=== PATIENT | male | born 1955 | race Caucasian/White ===

== ENCOUNTER 2019-06-01 10:24 | Observation (INO) | payer MEDICARE, MEDICAID, SELFPAY ==
[2019-06-01] VITALS (10 sets, daily range): BP systolic 97–152; BP diastolic 58–84; PULSE 93–106; RESP 12–22; TEMP 36.7–37.4; O2SAT 96–99; BMI 31.6
--- NOTE | ~2019-06-01 | XR_ITS ---
EXAMINATION: XR chest 1V DATE: 06/01/2019 11:50 INDICATION: Shortness of breath. TECHNIQUE: A single frontal view of the chest was obtained. COMPARISON: Chest single view 12/18/2017, CT abdomen and pelvis 09/28/2017 FINDINGS: There is no pneumonia, pleural effusion, or pneumothorax. The heart size is normal. There a re prominent paracardial fat pads. There are changes of mitral valve replacement. IMPRESSION: 1. No acute cardiopulmonary disease. Reviewed, dictated and finalized at location A. [employer]AM MEMBER
--- NOTE | ~2019-06-01 | CT_ITS ---
EXAMINATION: CT brain wo con DATE: 06/01/2019 16:00 INDICATION: Altered mental status. TECHNIQUE: Computed tomography (CT) of the head was performed without intravenous contrast. The dose- length product was 605.33 mGy-cm. The mA was adjusted according to patient size. Iterative reconstruc tion technique was employed. COMPARISON: CT dated 08/17/2017 FINDINGS: There are chronic infarctions of the right temporal lobe, right frontal lobe, right parieta l lobe and right occipital lobe. Chronic right cerebellar infarctions. Generalized atrophy. There is a chronic right thalamic infarction. There are scattered moderate periventricular and subcortical whi te matter changes, most likely related to small vessel ischemic disease (microangiopathy). No ventric ulomegaly or midline shift. There is intracranial atherosclerosis. There is a chronic left parietal i nfarction. There is mucosal thickening of the ethmoid, sphenoid and right maxillary sinuses. Mastoids are pneumatized. IMPRESSION: 1. No acute intracranial abnormality. 2: Chronic right frontal, bilateral parietal, right temporal, right occipital, right cerebellar and r ight thalamic infarctions. 3: Chronic age-related findings. 4: Chronic sinusitis. Reviewed, dictated and finalized at location A. ET OPERATOR IMPRESSION: 1. No acute intracranial abnormality. 2: Chronic right frontal, bilateral parietal, right temporal, right occipital, right cerebellar and right thalamic infarctions. 3: Chronic age-related findings. 4: Chronic sinusitis.
--- NOTE | 2019-06-01 10:28 | ECG_ITS ---
Measurements Intervals [place] Rate: 99 P: 58 UT: 189 QRS: 10 QRSD: 94 T: 66 QT: 351 QTc: 451 Interpretive Statements SINUS RHYTHM BORDERLINE ST-T WAVE ABNORMALITY- LATERAL LEADS BASELINE ARTIFACT- I, II, III, AVR, AVL, AVF, V3 BORDERLINE ECG Electronically Signed On 06-01-2019 11:58:24 [employer] SERVIC[employer] by Demetris Walsh D.O.
--- NOTE | 2019-06-01 10:51 | ED.GENADULT ---
HPI - General Adult General Chief complaint: Altered Mental Status <Alyse Hightower PA-C - Last Filed: 06/01/19 16:56> Stated complaint: weakness/ams <Alyse Hightower PA-C - Last Filed: 06/01/19 16:56> Time Seen by Provider: 06/01/19 10:37 <Alyse Hightower PA-C - Last Filed: 06/01/19 16:56> Source: patient and family <Alyse Hightower PA-C - Last Filed: 06/01/19 16:56> Mode of arrival: EMS <SUJATA Gregory Last Filed: 06/01/19 16:56> Limitations: no limitations <Alyse Hightower PA-C - Last Filed: 06/01/19 16:56> History of Present Illness HPI narrative: Patient was brought in from his residential facility by EMS for further evaluation of worsening weakness and shortness of breath. Patient states that he in the past has been able to transfer himself from the bed to the wheelchair without difficulty. Now the staff reports that he has no strength to assist. Patient states that once he is in his wheelchair he is still able to move himself about the facility with his legs. He is only short of breath with exertion and had denies any chest pain. Patient has chronic leukemia. Patient has lived in this residential facility for 1-1/2 years. <Alyse Hightower PA-C - Last Filed: 06/01/19 16:56> Onset (ago): week(s) <Alyse Hightower PA-C - Last Filed: 06/01/19 16:56> Associated symptoms: shortness of breath <SUJATA Gregory Last Filed: 06/01/19 16:56> Treatments prior to arrival: none <SUJATA Gregory Last Filed: 06/01/19 16:56> Related Data Home medications: Home Medications Medication Instructions Recorded Confirmed acetaminophen [Pain Relief Extra 06/01/19 Strength] aspirin 06/01/19 citalopram mg 06/01/19 gabapentin 02/01/20 hydroxyurea 06/01/19 magnesium 06/01/19 nitroglycerin mg 06/01/19 nystatin TOPICAL 06/01/19 polyethylene glycol 3350 06/01/19 sennosides-docusate sodium [Senna PO 06/01/19 Plus] tramadol mg 06/01/19 <SUJATA Gregory Last Filed: 06/01/19 16:56> Allergies/adverse reactions: Allergies Allergy/AdvReac Type Severity Reaction Status Date / Time diazepam Allergy Intermediate Unknown Verified 06/01/19 10:28 midazolam Allergy Intermediate Unknown Verified 06/01/19 10:28 warfarin Allergy Intermediate Unknown Verified 06/01/19 10:28 clopidogrel Allergy Unknown Unknown Verified 06/01/19 10:28 <SUJATA Gregory Last Filed: 06/01/19 16:56> Review of Systems Constitutional: Constitutional: Reports no additional constitutional complaints <SUJATA Gregory Last Filed: 06/01/19 16:56> Eyes: Eyes: Reports no additional eye complaints <SUJATA Gregory Last Filed: 06/01/19 16:56> ENT: Reports system reviewed and no additional complaints, except as documented <SUJATA Gregory Last Filed: 06/01/19 16:56> Cardiovascular: Cardiovascular: Reports no additional cardiovascular complaints <SUJATA Gregory Last Filed: 06/01/19 16:56> Respiratory: Respiratory: Reports no additional respiratory complaints <SUJATA Gregory Last Filed: 06/01/19 16:56> Gastrointestinal: Gastrointestinal: Reports no additional gastrointestinal complaints <SUJATA Gregory Last Filed: 06/01/19 16:56> Musculoskeletal: Comments: Unable to straighten both legs, normal strength <SUJATA Gregory Last Filed: 06/01/19 16:56> Integumentary/Breasts: Skin/Breast: Reports system reviewed and no additional complaints, except as docu <SUJATA Gregory Last Filed: 06/01/19 16:56> Neurologic: Reports system reviewed and no additional complaints, except as documented <Alyse Hightower PA-C - Last Filed: 06/01/19 16:56> Psychiatric: Psychiatric: Reports no additional psychiatric complaints <Alyse Hightower PA-C - Last Filed: 06/01/19 16:56> [facility] Past Medical History Medical History: Medical History (Reviewed 06/01/19 @ 11:59 by Alyse Gomez
[2019-06-01 11:22] LABS: Basophils Percent Auto 0.7 % (0.2-1.2); Eosinophils Percent Auto 1.3 % (0-4.4); Hematocrit 29.1 % (42.0-52.0); Hemoglobin 10.2 g/dL (14.0-18.0); Immature Granulocyte Absolute 0.03 K/mm3 (0.00-0.031); Lymphocytes Absolute Auto 1.04 K/mm3 (0.9-3.2); Mean Corpuscular HGB Conc 35.1 g/dl (32-36); Mean Corpuscular Volume 139.9 fl (80-100); Mean Platelet Volume 9.5 fl (7.4-10.4); Monocytes Absolute Auto 0.3 K/mm3 (0.1-0.6); Monocytes Percent Auto 10.1 % (2.6-8.5); Neutrophils Absolute Auto 1.6 K/mm3 (1.3-6.7); Neutrophils Percent Auto 52.9 % (45.5-73.1); Nucleated Red Blood Cells Absolute Auto 0.1 K/mm3 (0.0-0.012); Nucleated Red Blood Cells Perc 1.6 % (0.0-0.2); Platelet Count Result 287 k/mm3 (150-375); Red Blood Count 2.08 M/mm3 (4.6-6.20); Red Cell Distribution Width 12.3 % (11.5-14.5); White Blood Count 3.1 K/mm3 (4.5-10.0)
[2019-06-01 11:35] LABS: Alanine Aminotransferase 15 U/L (4-50); Albumin Level 4.2 g/dL (3.5-5.1); Alkaline Phosphatase 47 U/L (38-126); Aspartate Amino Transferase 25 U/L (17-59); Bilirubin,Total 0.5 mg/dL (0.2-1.3); Blood Urea Nitrogen 15 mg/dL (9-20); Calcium 8.6 mg/dL (8.4-10.2); Carbon Dioxide 27 mmol/L (22-30); Chloride 95 mmol/L (98-107); Estimated CRCL calculation 93 ml/min; Estimated Glomerular Filt Rate > 60; Glucose 135 mg/dL (75-110); Potassium 4.1 mmol/L (3.4-5.0); Sodium 133 mmol/L (137-145)
[2019-06-01 12:25] LABS: Add Urine Microscopic? NO; Appearance Urine Clear (Clear); Bilirubin Urine Negative (Negative); Blood Urine Negative (Negative); Color Urine Yellow (Yellow); Glucose Urine UA Negative (Negative); Ketones Urine Negative (Negative); Leukocyte Esterase Ur Negative LEU/UL (Negative); Mucus Urine Rare /lpf; Nitrate Urine Negative (Negative); Protein Urine Negative (Negative); RBC Urine 0-2 /hpf (0-2); Specific Grav Ur 1.015 (1.001-1.035); Squamous Epithelial Cell Urine Rare /hpf (Few); Urobilinogen Urine Negative mg/dL (<2.0); WBC Urine 0-3 /hpf
--- NOTE | 2019-06-01 18:07 | PC.NURSE ---
This patient, Masoud Luque, was admitted to Medical Room 257-01. Patient/family oriented to hospital policies and general routines including ID bracelet, bed and alarms, visiting hours, pain management, procedures, bathroom and other care routines, personal items, smoking policy, room service/diet, and visiting hours. Valuables list has been completed. Information on how to activate the Rapid Response Team has been discussed. Patient/Family are encouraged to report perceived risks to care and to ask questions if they do not understand what they are told or what they should do.
--- NOTE | 2019-06-01 23:12 | PM.IMHP ---
H&P: HPI History of Present Illness Chief complaint: altered mental status Narrative: This is a 63-year-old male with known medical history of previous strokes, leukemia, and heart disease who was brought to the hospital for evaluation of generalized weakness and apparently shortness of breath from the nursing home facility. Nursing staff had reported that the patient had suffered 3 falls over the past 3 days. It is unknown if he suffered any type of head trauma. Apparently the patient was also picking things out of the air that did not exist according to the [facility] staff and was found to be incontinent of stool and urine which is uncharacteristic of him. The patient was brought to the emergency room and routine evaluation was performed. Routine labs were obtained and the patient had a head CT done that was unremarkable for any acute intracranial pathology. Nursing staff alerted me that the patient was going to be discharged back to the nursing home facility but the the decision was made to keep him overnight for observation as the family did not want him to go back. On my encounter with the patient tonight he has no complaints and appears upset that he was kept in the hospital. The patient tells me that he is wheelchair-bound and that he suffers from chronic lower extremity weakness from previous strokes. He appears to be alert and oriented. On specific questioning he denies any fevers, chills, shortness of breath, wheezing, cough, chest pain, abdominal pain, blurry vision, nausea, vomiting, headaches, dysuria, hematuria, diarrhea, rectal bleeding, numbness, tingling, or new focal weakness. The patient has no complaints and is asking me when he can go home. Review of Systems Review of Systems: All systems reviewed & are unremarkable except as noted in HPI and below PMFSH Past Medical History Medical History (Updated 06/02/19 @ 04:01 by New Garcia MD) CVA (cerebral vascular accident) Leukemia, chronic Myocardial infarct Surgical History Surgical History Stented coronary artery Family History Family History Sibling Diabetes mellitus Acute myocardial infarction Congestive heart failure Hypertension Cerebrovascular accident Prostate carcinoma Sibling Diabetes mellitus Acute myocardial infarction Chronic obstructive pulmonary disease Hypertension Cerebrovascular accident Prostate carcinoma Sibling History of blood clots Diabetes mellitus Hypertension Father Diabetes mellitus Cerebrovascular accident Sibling Diabetes mellitus Social History Social History Smoking packs per day: 2 Smoking cigarettes per day: 40.0 Years smoked: 50 Smoking pack-years: 100.00 Smoking status: Former smoker Tobacco type: cigarettes Alcohol intake: former Substance use: former Substance use type: does not use Living arrangements: [facility]itentiary Spiritual care concerns: No Agree to blood products: Yes Meds Home Medications and Allergies Home Medications Medication Instructions Recorded Confirmed Type acetaminophen [Acetaminophen Extra 500 mg PO TID 06/01/19 06/01/19 History Strength] aspirin 81 mg PO DAILY 06/01/19 06/01/19 History citalopram 20 mg BID 06/01/19 06/01/19 History gabapentin 100 mg TID 06/01/19 06/01/19 History hydroxyurea 500 mg PO QID 06/01/19 06/01/19 History ipratropium-albuterol [Combivent 1 puff INHALATION Q4H PRN 06/01/19 06/01/19 History Respimat] magnesium 400 mg PO DAILY 06/01/19 06/01/19 History nitroglycerin 0.4 mg SUBLINGUAL PRN PRN 06/01/19 06/01/19 History polyethylene glycol 3350 17 g DAILY 06/01/19 06/01/19 History sennosides-docusate sodium [Senna 8.6 tablet PO EVERY OTHER DAY 06/01/19 06/01/19 History Plus] tramadol 500 mg QID 06/01/19 06/01/19 History Allergies
[2019-06-02 03:14] VITALS: BP 135/54; PULSE 97; RESP 16; TEMP 35.8; O2SAT 94
[2019-06-02 04:00] VITALS: PULSE 98
[2019-06-02 05:18] LABS: Basophils Percent Auto 0.8 % (0.2-1.2); Eosinophils Percent Auto 0.6 % (0-4.4); Hematocrit 30.6 % (42.0-52.0); Hemoglobin 10.6 g/dL (14.0-18.0); Immature Granulocyte Absolute 0.03 K/mm3 (0.00-0.031); Immature Granulocyte Percent A 0.8 % (0-0.5); Lymphocytes Absolute Auto 1.39 K/mm3 (0.9-3.2); Lymphocytes Percent Auto 38.4 % (18.3-44.2); Mean Corpuscular HGB Conc 34.6 g/dl (32-36); Mean Corpuscular Hemoglobin 48.8 pg (26-34); Monocytes Absolute Auto 0.7 K/mm3 (0.1-0.6); Monocytes Percent Auto 20.2 % (2.6-8.5); Neutrophils Absolute Auto 1.4 K/mm3 (1.3-6.7); Neutrophils Percent Auto 39.2 % (45.5-73.1); Nucleated Red Blood Cells Absolute Auto 0.1 K/mm3 (0.0-0.012); Nucleated Red Blood Cells Perc 1.7 % (0.0-0.2); Platelet Count Result 307 k/mm3 (150-375); Red Blood Count 2.17 M/mm3 (4.6-6.20); Red Cell Distribution Width 12.2 % (11.5-14.5); White Blood Count 3.6 K/mm3 (4.5-10.0)
[2019-06-02 05:33] LABS: Blood Urea Nitrogen 14 mg/dL (9-20); Calcium 8.5 mg/dL (8.4-10.2); Carbon Dioxide 27 mmol/L (22-30); Chloride 94 mmol/L (98-107); Cholesterol 144 mg/dL (0-200); Estimated CRCL calculation 102 ml/min; Estimated Glomerular Filt Rate > 60; Glucose 141 mg/dL (75-110); HDL Direct 40 mg/dL; Potassium 4.2 mmol/L (3.4-5.0); Sodium 133 mmol/L (137-145); Triglycerides 65 mg/dL (<150)
[2019-06-02 05:43] LABS: LDL Cholesterol Direct 89 mg/dL
[2019-06-02 06:00] VITALS: BP 135/54; PULSE 91; RESP 20; TEMP 35.8; O2SAT 98
[2019-06-02 06:00] LABS: Free T4 Free Thyroxine 1.38 ng/mL (0.78-2.19)
--- NOTE | 2019-06-02 07:54 | PC.NURSE ---
Called ROSALBA Strong patient refusing to wear hall monitor. Patient very agitated and threatening to throw monitor. Requesting to DC telemetry monitoring. Per ROSALBA Strong ok to discontinue monitoring.
[2019-06-02] MEDS: GABAPENTIN 100 MG CAPSULE BY MOUTH ×2 (08:05→12:19)
[2019-06-02] MEDS: ASPIRIN 81 MG CHEWABLE TABLET PO (08:05)
[2019-06-02] MEDS: MAGNESIUM OXIDE 400 MG TABLET PO (08:05)
[2019-06-02] MEDS: SENNA/DOCUSATE SODIUM TABLET 1 TAB PO (08:05)
[2019-06-02] MEDS: CITALOPRAM HYDROBROMIDE 20 MG TABLET BY MOUTH (08:05)
[2019-06-02] MEDS: ACETAMINOPHEN 500 MG TABLET PO ×2 (08:05→12:19)
[2019-06-02] MEDS: HYDROXYUREA (*CHEMO) 500 MG CAPSULE PO ×2 (08:05→12:19)
[2019-06-02] MEDS: polyethylene glycoL 3350 17 GM POWD.PACK BY MOUTH (08:07)
[2019-06-02 09:46] LABS: Folic Acid 11.6 ng/mL (2.76->20)
[2019-06-02 10:00] VITALS: BP 123/65; PULSE 86; RESP 18; TEMP 36.5; O2SAT 98
--- NOTE | 2019-06-02 13:16 | PM.DS ---
DS: Diagnosis Admitting Diagnosis Admitting Diagnosis: Encephalopathy, unspecified Discharge Diagnosis (1) Acute encephalopathy: Code(s): G93.40 - Encephalopathy, unspecified Status: Resolved Assessment and Plan: Patient was admitted for observation. Dr. Aguirre was consulted and appreciate input. Patient refused telemetry and threatened the nursing staff if it was not taken off immediately; this show sinus rhythm with occasional PVCs and trigeminy occasionally. Patient is back to he baseline, per patient. Spoke with Aleshia with patient's permission and she is concerned of a recent stroke 3 days ago [facility] when he had left arm weakness and lost bowel/bladder function. Discussed this with Dr. Aguirre whom reviewed labs/imaging. Labs have been grossly unremarkable. CT scan had shown chronic infarcts; no acute changes found. Patient is okay for discharge from Neurology standpoint He will return to residential/NH after discharge PT/OT Dr. Aguirre would like to have him follow up with him in 4 weeks as an outpatient for possible further imaging/work up Dr. Aguirre recommends 10 mg atorvastatin at night and continue 81 mg Aspirin (2) Generalized weakness: Code(s): R53.1 - Weakness Status: Acute Assessment and Plan: May be secondary to deconditioning as the patient is wheelchair-bound. Patient is already in a care home facility will likely need to be discharged back to care home facility once he is medically stable. PT/OT at NH once discharged from here (3) Leukemia, chronic: Qualifiers: Leukemia Active/Remission status: without remission Qualified Code(s): C95.10 - Chronic leukemia of unspecified cell type not having achieved remission Code(s): C95.10 - Chronic leukemia of unspecified cell type not having achieved remission Status: Chronic Assessment and Plan: Stable Follow up with Oncologist (4) Hypertension: Qualifiers: Hypertension type: unspecified Qualified Code(s): I10 - Essential (primary) hypertension Code(s): I10 - Essential (primary) hypertension Status: Chronic Assessment and Plan: Stable. monitor blood pressure. Continue antihypertensive medications at discharge DS: Summary Hospital Course Reason for hospitalization: Acute encephalopathy Hospital Course: Patient is a 63 yo M with known medical history of previous strokes, leukemia, and heart disease who was brought to the hospital on 06/01 for evaluation of generalized weakness and apparently shortness of breath from the care home facility. Nursing Staff reported patient had suffered 3 falls in the previous 3 days from presentation. According to nursing staff at the facility he was picking things out of the air that were not there and was incontinent of stool and urine which was uncharacteristic of him. In the ER, Head CT was unremarkable for acute stroke. He was going to be discharged back to the SNF, however, family did not want him to return to the facility. Patient was very upset that he was kept in the hospital. Please see H&P for further details. Presenting VS: BP 113/79, HR 102, RR 16, temp 99.4, sat 98% RA Presenting Pertinent labs: WBC 3.1, H&H 10.2/29.1, MCV 139.9, Na 133, Cl 95. CBC, CMP, lipid panel, vit B12/folate, T4, UA otherwise unremarkable Micro: MRSA screen negative Imagin/1 CXR IMPRESSION: 1. No acute cardiopulmonary disease. / Head CT IMPRESSION: 1. No acute intracranial abnormality. 2: Chronic right frontal, bilateral parietal, right temporal, right occipital, right cerebellar and right thalamic infarctions. 3: Chronic age-related findings. 4: Chronic sinusitis. ECG: Interpretive Statements SINUS RHYTHM BORDERLINE ST-T WAVE ABNORMALITY- LATERAL LEADS BASELINE ARTIFACT- I, II, III, AVR, AVL, AVF, V3 B
[2019-06-02 13:55] VITALS: O2SAT 95
[2019-06-02 14:00] VITALS: BP 121/68; PULSE 97; RESP 20; TEMP 36.2; O2SAT 98
[2019-06-02 14:19] VITALS: BMI 11.0
[2019-06-02 14:20] VITALS: BMI 11.0
--- NOTE | 2019-06-02 19:20 | CONS_ITS ---
DATE OF CONSULTATION: 06/01/2019 HISTORY: This 63-year-old right-handed male has been admitted to [facility] the [facility]. The patient carries a diagnoses of: 1. Previous stroke. 2. Leukemia. 3. Heart disease. He was brought to the hospital for the complaints of generalized weakness and difficulties in breathing and also with information that the patient has had 3 falls over the last 3 days. Additionally, he was picking things out of the ear that did not exist according to prison staff and was found to be incontinent of stool and urine, which is uncharacteristic of him. The patient had a CT scan done, which was unremarkable. He was kept in the hospital overnight for observation, as the family did not want him to go back and the patient was upset that they kept him in the hospital. He is wheelchair bound and suffers from chronic lower extremity weakness from previous stroke. In the past, he has ongoing history of: 1. CVA. 2. Chronic leukemia. 3. Myocardial infarct. 4. Coronary artery stenting. He is a smoker 15 years former. MEDICATIONS: At the time of admission, he was takin. Aspirin 81 mg daily. 2. Citalopram 20 mg daily. 3. Gabapentin 100 t.i.d. 4. Hydroxyurea 500 q.i.d. 5. Magnesium 400 daily. 6. Nitroglycerin 0.4 mg sublingual daily. 7. MiraLAX 17 g daily. 8. Tramadol 50 mg q.i.d. p.r.n. ALLERGIES: HE IS ALLERGIC TO DIAZEPAM, MIDAZOLAM, WARFARIN, AND CLOPIDOGREL. ? Evaluation up until now included the CT scan of the head, which is with chronic right frontal, bilateral parietal, right temporal, right occipital, right cerebellar, right thalamic infarction with chronic sinusitis. Chest x-ray is negative. Routine blood studies are only suggestive of mild leukopenia, anemia. PHYSICAL EXAMINATION: GENERAL: He is awake, alert, cooperative, in no obvious acute distress. HEENT: Head normocephalic with no cranial bruit. Ear, nose, throat exam normal. NECK: Supple with no cervical bruit. No thyromegaly. No lymphadenopathy. HEART: Regular. LUNGS: Clear. ABDOMEN: Soft. NEUROLOGICAL: He is awake, alert. He is upset that he is being admitted to the hospital. Pupils round, regular. [place] of vision full. Extraocular movements full. Face symmetrical. Tongue midline. Motor examination revealed him to have no drift of 1 side or other side. Motor exam of the lower extremity is limited, because he is unable to extend the knee joint, in addition to the right Babinski. Considering both lower extremity spasticity, I was worried about this cervical pathology. I will review that and further recommendations will be made accordingly. JAIMIE MERCHANT M.D. LACE STRIPPER LACE STRIPPER D I MT: Saravanan
== END 2019-06-02 15:56 ==
LOC: ANHED 16:55 → ANH2MED 17:00
PROVIDERS: Emergency Medicine; Family Medicine; Physician Assistant; Admitting Provider Family Medicine; Emergency Provider Emergency Medicine; Visit Provider Internal Medicine
DX: G93.40 Encephalopathy, unspecified (principal); R53.1 Weakness; C95.10 Chronic leukemia of unspecified cell type not having achieved remission; I10 Essential (primary) hypertension; I25.2 Old myocardial infarction; I69.398 Other sequelae of cerebral infarction; R29.898 Other symptoms and signs involving the musculoskeletal system; Z99.3 Dependence on wheelchair; Z95.5 Presence of coronary angioplasty implant and graft; R29.6 Repeated falls; Z79.82 Long term (current) use of aspirin; Z79.899 Other long term (current) drug therapy; Z87.891 Personal history of nicotine dependence; Z88.8 Allergy status to other drugs, medicaments and biological substances
CPT/HCPCS: 36415; 51701; 70450; 71045; 80048; 80053; 80061; 81003; 82607; 82746; 84439; 85025; 87081; 93005; 97162; 97166; 99285; A9270; G0378; G0379

== ENCOUNTER 2019-09-05 22:27 | Emergency (ER) | payer MEDICARE, MEDICAID, SELFPAY ==
[2019-09-05 22:26] VITALS: BP 117/65; PULSE 95; RESP 16; TEMP 36.3; O2SAT 99
[2019-09-06] MEDS: ONDANSETRON INJ 4 MG/2 ML VIAL IV PUSH (00:06)
[2019-09-06] MEDS: MORPHINE SULFATE 4 MG/ML INJ IV PUSH (00:06)
[2019-09-06] MEDS: CLINDAMYCIN 900 MG/NS 50 ML 900 MG/50 ML PIGGYBACK 50 MG IVPB (00:10)
--- NOTE | 2019-09-06 00:12 | ED.GENADULT ---
HPI - General Adult General Chief complaint: Allergic Reaction Stated complaint: swelling lips Source: patient and EMS Mode of arrival: EMS History of Present Illness HPI narrative: This patient is a 64 yo male who presents for severe lip pain. PAtient state he has had sores to both lips for 3 weeks. He reports his pain is so severe , EMS states patient asked to be sent to ER. According to records, patient was just started on Valtrex 1 gram TID 2 days ago. Patient states is able to tolerate oral. He denies sore throat , fever, weakness, nausea or vomiting. Onset (ago): week(s) (3) Related Data Home Medications Medication Instructions Recorded Confirmed Combivent Respimat 1 puff INHALATION Q4H PRN 06/01/19 06/01/19 Senna Plus 8.6 tablet PO EVERY OTHER DAY 06/01/19 06/01/19 acetaminophen [Acetaminophen Extra 500 mg PO TID 06/01/19 06/01/19 Strength] aspirin 81 mg PO DAILY 06/01/19 06/01/19 citalopram 20 mg BID 06/01/19 06/01/19 gabapentin 100 mg TID 06/01/19 06/01/19 hydroxyurea 500 mg PO QID 06/01/19 06/01/19 magnesium 400 mg PO DAILY 06/01/19 06/01/19 nitroglycerin 0.4 mg SUBLINGUAL PRN PRN 06/01/19 06/01/19 polyethylene glycol 3350 17 g DAILY 06/01/19 06/01/19 tramadol 500 mg QID 06/01/19 06/01/19 atorvastatin 09/05/19 valacyclovir 09/05/19 valacyclovir 1,000 mg TID 09/05/19 09/05/19 Allergies Allergy/AdvReac Type Severity Reaction Status Date / Time diazepam Allergy Intermediate Unknown Verified 06/01/19 10:28 midazolam Allergy Intermediate Unknown Verified 06/01/19 10:28 warfarin Allergy Intermediate Unknown Verified 06/01/19 10:28 clopidogrel Allergy Unknown Unknown Verified 06/01/19 10:28 Review of Systems Review of Systems: All systems reviewed & are unremarkable except as noted in HPI and below Constitutional: Constitutional: Denies chills, Denies fever(s) and Denies weakness ENT: Denies dry mouth, Reports mouth lesions (lips) and Denies sore throat Respiratory: Respiratory: Denies cough Gastrointestinal: Gastrointestinal: Denies nausea and Denies vomiting [facility] Past Medical History Medical History CVA (cerebral vascular accident) Leukemia, chronic Myocardial infarct Surgical History Surgical History Stented coronary artery Social History Social History Smoking packs per day: 2 Smoking cigarettes per day: 40.0 Years smoked: 50 Smoking pack-years: 100.00 Smoking status: Former smoker Tobacco type: cigarettes Alcohol intake: former Substance use: former Substance use type: does not use Spiritual care concerns: No Agree to blood products: Yes Exam Const: General: alert Orientation/consciousness: patient oriented x3 HENMT: Face and sinus: face symmetric Mouth: Yes moist mucous membranes, Yes lip abnormal (upper and lower lips with multiple ulcerations with curran crusting) and Yes other (no thrush, no lesion inside oropharynx) Throat: posterior oropharynx normal, tonsils normal and uvula midline Eyes: Pupils: Equal, round and reactive pupils present EOM: EOMs intact bilaterally Resp: Effort & Inspection: normal respiratory effort Cardio: Rate: regular rate Rhythm: regular rhythm Heart sounds: no murmurs Skin: General skin exam: pallor Neuro: General: patient oriented x3 Course Reevaluation(s) Reevaluation #1: Patient is resting comfortably. He states he feels better. Patient appears to stomatitis due to herpes. Will add on antibiotics ointment Date: 09/06/19 Time: 01:00 Vital Signs Vital signs: Vital Signs Temperature 97.3 F L 09/05/19 22:26 Pulse Rate 95 09/05/19 22:26 Respiratory Rate 16 09/05/19 22:26 Blood Pressure 117/65 09/05/19 22:26 Pulse Oximetry 99 09/05/19 22:26 Temperature 97.3 F L 09/06/19 00:46 Pulse Rate 90 09/06/19 02:40 Respira
[2019-09-06 00:39] VITALS: PULSE 88; RESP 16; O2SAT 97
[2019-09-06 00:46] VITALS: TEMP 36.3
[2019-09-06] MEDS: SODIUM CHLORIDE 0.9% IV 1,000 ML 999 ML IV CONT (01:39)
[2019-09-06 02:40] VITALS: BP 100/50; PULSE 90; RESP 18; O2SAT 97
== END 2019-09-06 02:38 ==
PROVIDERS: Emergency Provider General Practice
DX: B00.2 Herpesviral gingivostomatitis and pharyngotonsillitis (principal); Z86.73 Personal history of transient ischemic attack (TIA), and cerebral infarction without residual deficits; C95.10 Chronic leukemia of unspecified cell type not having achieved remission; I25.2 Old myocardial infarction; Z95.5 Presence of coronary angioplasty implant and graft; Z87.891 Personal history of nicotine dependence
CPT/HCPCS: 96361; 96365; 96375; 99284; J2270; J2405; J7030

== ENCOUNTER 2019-09-18 16:33 | Inpatient (IN) | payer MEDICARE, MEDICAID, SELFPAY ==
[2019-09-18] VITALS (14 sets, daily range): BP systolic 86–116; BP diastolic 27–54; PULSE 79–100; RESP 16–20; TEMP 36.3–37.1; O2SAT 96–100; BMI 27.0
--- NOTE | ~2019-09-18 | XR_ITS ---
EXAMINATION: XR chest 1V portable DATE: 09/20/2019 03:20 INDICATION: Hypoxia TECHNIQUE: frontal view of the chest was obtained. COMPARISON: Chest radiograph dated 09/18/2019 FINDINGS: No significant interval change in diffuse bilateral interstitial and airspace opacities. No pleural e ffusion or pneumothorax. Heart size is normal. Median sternotomy wires and mitral valve repair. IMPRESSION: 1. Unchanged diffuse bilateral interstitial and airspace opacities which could represent pulmonary ed maty, pneumonia, atelectasis or some combination thereof. Reviewed, dictated and finalized at location A. IMPRESSION: 1. Unchanged diffuse bilateral interstitial and airspace opacities which could represent pulmonary edema, pneumonia, atelectasis or some combination thereof.
--- NOTE | ~2019-09-18 | XR_ITS ---
EXAMINATION: XR abdomen obstructive series DATE: 09/19/2019 15:54 INDICATION: Abdominal pain TECHNIQUE: Upright and supine views of the abdomen were obtained. COMPARISON: 01/09/2014 FINDINGS: The bowel gas pattern is nonspecific. There are no dilated loops of bowel. No free intraper itoneal gas is identified. Cardiomegaly is noted. There are changes of prior cardiac valve surgery. IMPRESSION: 1. Nonspecific and nonobstructive bowel gas pattern. Reviewed, dictated and finalized at location A.
--- NOTE | ~2019-09-18 | XR_ITS ---
EXAMINATION: XR chest 1V portable INDICATION: Weakness and fever TECHNIQUE: Portable AP chest at 1959 hours COMPARISON: 06/01/2019 FINDINGS: The lung volumes are low. There are questionable diffuse interstitial and airspace opacitie s. Changes of cardiac valve surgery are noted. No pleural effusion or pneumothorax is identified. The heart size is normal. IMPRESSION: 1. Low lung volumes which likely account for the appearance of interstitial and airspace opacities. Reviewed, dictated and finalized at location A.
--- NOTE | 2019-09-18 16:52 | ECG_ITS ---
Measurements Intervals [place] Rate: 94 P: 73 MN: 187 QRS: 49 QRSD: 113 T: 80 QT: 389 QTc: 488 Interpretive Statements SINUS RHYTHM LOW QRS VOLTAGE- DIFFUSE LEADS INTRAVENTRICULAR CONDUCTION DELAY BORDERLINE T WAVE ABNORMALITY- HIGH LATERAL LEADS BORDERLINE ECG Electronically Signed On 09-19-2019 7:15:48 CDT by Demetris Walsh D.O.
[2019-09-18] MEDS: SODIUM CHLORIDE 0.9% IV 2,000 ML 100 ML (17:00)
--- NOTE | 2019-09-18 17:01 | ED.GENADULT ---
HPI - General Adult General Chief complaint: Weakness Stated complaint: FEVER/AMS Time Seen by Provider: 09/18/19 16:37 History of Present Illness HPI narrative: Patient is a 64-year-old male who presents the ER with concerns of possible sepsis by his detention. Patient has not been eating over the last couple of days. He developed a fever today. 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 He has been taking Valtrex. Patient is awake and alert but not particularly helpful when attempting to elicit a history. Originally he would not talk, then he would only point to his mouth, and then finally he would tell me that he was seen in the ER and he did not know why he was here otherwise. He does report diffuse abdominal pain for 1 month but cannot describe any aggravating or alleviating factors. Related Data Home Medications Medication Instructions Recorded Confirmed Combivent Respimat 1 puff INHALATION Q4H PRN 06/01/19 06/01/19 Senna Plus 8.6 tablet PO EVERY OTHER DAY 06/01/19 06/01/19 acetaminophen [Acetaminophen Extra 500 mg PO TID 06/01/19 06/01/19 Strength] aspirin 81 mg PO DAILY 06/01/19 06/01/19 citalopram 20 mg BID 06/01/19 06/01/19 gabapentin 100 mg TID 06/01/19 06/01/19 hydroxyurea 500 mg PO QID 06/01/19 06/01/19 magnesium 400 mg PO DAILY 06/01/19 06/01/19 nitroglycerin 0.4 mg SUBLINGUAL PRN PRN 06/01/19 06/01/19 polyethylene glycol 3350 17 g DAILY 06/01/19 06/01/19 tramadol 500 mg QID 06/01/19 06/01/19 atorvastatin 09/05/19 valacyclovir 09/05/19 valacyclovir 1,000 mg TID 09/05/19 09/05/19 Allergies Allergy/AdvReac Type Severity Reaction Status Date / Time diazepam Allergy Intermediate Unknown Verified 09/18/19 16:50 midazolam Allergy Intermediate Unknown Verified 09/18/19 16:50 warfarin Allergy Intermediate Unknown Verified 09/18/19 16:50 clopidogrel Allergy Unknown Unknown Verified 09/18/19 16:50 Review of Systems Review of Systems: All systems reviewed & are unremarkable except as noted in HPI and below Constitutional: Constitutional: Denies chills, Reports fever(s) and Denies weakness ENT: Denies nasal congestion and Denies sore throat Comments: Dry and cracked lips Cardiovascular: Cardiovascular: Denies chest pain and Denies radiating jaw, neck or arm pain Respiratory: Respiratory: Denies cough and Denies dyspnea Gastrointestinal: Gastrointestinal: Reports abdominal pain, Denies diarrhea, Denies nausea and Denies vomiting PMFSH Surgical History Surgical History Stented coronary artery Social History Social History Smoking packs per day: 2 Smoking cigarettes per day: 40.0 Years smoked: 50 Smoking pack-years: 100.00 Smoking status: Former smoker Tobacco type: cigarettes Alcohol intake: former Substance use: former Substance use type: does not use Gender identity (if verbalized by the patient): Male Spiritual care concerns: No Agree to blood products: Yes Exam Narrative: Exam Narrative: GENERAL: Chronically ill-appearing, well-nourished, and in no acute distress. HEAD: Normocephalic, atraumatic. EYES: PERRL and EOMI. ENT: Dry mucous membranes. The lips are cracked and dried with scabs from previous herpes outbreak. No vesicles. CHEST: Clear to auscultation. No respiratory distress. HEART: Regular rate and rhythm. Normal peripheral pulses. ABDOMEN: Soft, diffuse tenderness without guarding, nondistended. EXTREMITIES: Normal range of motion. No edema. SKIN: Warm, dry, pale. NEURO: Alert and oriented x3. PSYCH: Normal mood and affect. Course Course Emergency Course: Patient informed of results. He is asked me to contact his sister regarding his treatment. Typically he sees a oncologist out of [facility]. He has not seen that person for several months. I am contacted Dr. Hopper, recommends an LDH, iron panel, and B12 level. Pat
[2019-09-18 17:16] LABS: Alanine Aminotransferase 11 U/L (4-50); Albumin Level 3.4 g/dL (3.5-5.1); Alkaline Phosphatase 64 U/L (38-126); Aspartate Amino Transferase 29 U/L (17-59); Bilirubin,Total 0.8 mg/dL (0.2-1.3); Blood Urea Nitrogen 21 mg/dL (9-20); Carbon Dioxide 24 mmol/L (22-30); Chloride 104 mmol/L (98-107); Estimated Glomerular Filt Rate > 60; Glucose 124 mg/dL (75-110); Potassium 4.6 mmol/L (3.4-5.0); Sodium 135 mmol/L (137-145)
[2019-09-18 17:17] LABS: Lactic Acid 1.5 mmol/L (0.7-2.1)
[2019-09-18 18:01] LABS: Mean Corpuscular HGB Conc 31.4 g/dl (32-36); Mean Corpuscular Hemoglobin 47.4 pg (26-34); Mean Platelet Volume 11.8 fl (7.4-10.4); Platelet Count Result 68 k/mm3 (150-375); Red Blood Count 0.57 M/mm3 (4.6-6.20); Red Cell Distribution Width 14.3 % (11.5-14.5)
[2019-09-18 18:05] LABS: Hematocrit 8.6 % (42.0-52.0); Hemoglobin 2.7 g/dL (14.0-18.0); Mean Corpuscular Volume 150.9 fl (80-100)
[2019-09-18 18:06] LABS: White Blood Count 1.7 K/mm3 (4.5-10.0)
[2019-09-18 18:22] LABS: Lymphocytes Absolute Manual 1.08 K/mm3 (1.1-4.5); Monocytes Percent Manual 6 % (3-9); Neutrophils Percent Manual 30 % (46-73); Total Cells Counted 50
[2019-09-18 18:23] LABS: Platelet Estimate Decreased (Adequate)
[2019-09-18 18:24] LABS: Anisocytosis 2+ (NORMAL); Hypochromasia 3+ (NORMAL)
--- NOTE | 2019-09-18 18:34 | PC.NURSE ---
Called to add on Transferrin, Vit B12 folate, Iron TIBC Ferritin.
[2019-09-18 18:38] LABS: Mean Corpuscular Hemoglobin 46.6 pg (26-34); Mean Platelet Volume 12.3 fl (7.4-10.4); Platelet Count Result 67 k/mm3 (150-375); Red Blood Count 0.58 M/mm3 (4.6-6.20); Red Cell Distribution Width 14.3 % (11.5-14.5)
[2019-09-18 18:42] LABS: Add Urine Microscopic? YES; Appearance Urine Clear (Clear); Bacteria Urine Trace /hpf; Bilirubin Urine Negative (Negative); Blood Urine Negative (Negative); Color Urine Yellow (Yellow); Glucose Urine UA Negative (Negative); Ketones Urine Trace mg/dL (Negative); Leukocyte Esterase Ur Negative LEU/UL (Negative); Mucus Urine Rare /lpf; Nitrate Urine Negative (Negative); Protein Urine Negative (Negative); RBC Urine 0-2 /hpf (0-2); Specific Grav Ur 1.018 (1.001-1.035); Urobilinogen Urine Negative mg/dL (<2.0); WBC Urine 0-3 /hpf
[2019-09-18 18:46] LABS: Hemoglobin 2.7 g/dL (14.0-18.0); White Blood Count 1.7 K/mm3 (4.5-10.0)
[2019-09-18 18:47] LABS: Hematocrit 8.7 % (42.0-52.0)
[2019-09-18 18:48] LABS: Lactate Dehydrogenase 814 U/L (313-618)
[2019-09-18 18:48] LABS: Iron 120 ug/dL (49-181)
[2019-09-18 18:52] LABS: Lymphocytes Absolute Manual 0.81 K/mm3 (1.1-4.5); Monocytes Absolute Manual 0.13 K/mm3 (0.1-0.90); Monocytes Percent Manual 8 % (3-9); Neutrophils Percent Manual 44 % (46-73); Platelet Estimate Decreased (Adequate); Total Cells Counted 50
[2019-09-18 18:53] LABS: Anisocytosis 2+ (NORMAL); Hypochromasia 3+ (NORMAL)
[2019-09-18 18:56] LABS: Transferrin 153 mg/dL (206-381)
[2019-09-18 18:57] LABS: Percent Iron Saturation 48 % (20-50)
[2019-09-18] MEDS: SODIUM CHLORIDE 0.9% IV 250 ML 30 ML IV CONT (19:57)
[2019-09-18] MEDS: TUBING, BLOOD SET 1 EACH XX (19:58)
[2019-09-18 20:04] LABS: Folic Acid 3.4 ng/mL (2.76->20); Vitamin B12 > 1000.0 pg/mL (239-931)
--- NOTE | 2019-09-18 23:37 | PM.IMHP ---
H&P: HPI History of Present Illness Chief complaint: ?Symptoms of sepsis? Narrative: Date and time of patient contact: 09/18/2019 at 11:10 p.m. 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 Source of information is past medical records and ER records. The patient is unable/unwilling to answer questions. The patient reportedly has not been eating drinking or taking medications over the last several days. He was evaluated on 09/05/2023 herpetic stomatitis. He was given and was to continue Valtrex and lidocaine swish and spit as needed for pain. Up to 101? today and received Tylenol around 3:00 a.m.. He reported generalized abdominal pain to the ER staff. The portion of the patient's abdomen that I could reach with his positioning was not overly tender. The patient was not willing to answer questions. He yelled out when I tried to take his pulse and yelled how when I checked his shins for edema. Otherwise the patient continued to lay on his left anterior abdomen. In the ER the patient was found to be profoundly anemic with a hemoglobin of 2.7 (verified by repeat labs), pancytopenia and thrombocytopenia. The patient had large mushy brown stool after he arrived on the intermediate unit. The patient later told nursing staff that he did not have abdominal pain but that he just hurt all over. Review of Systems Review of Systems: ROS unobtainable: Yes unobtainable due to medical condition [facility] Past Medical History Medical History (Updated 09/19/19 @ 06:07 by Asya Begum DO) Bilateral cataracts Maturing Carotid stenosis COPD (chronic obstructive pulmonary disease) CVA (cerebral vascular accident) Diabetes mellitus Diagnosed 2017 Essential hypertension GERD (gastroesophageal reflux disease) Leukemia, chronic Diagnosed 2014 Myocardial infarct Surgical History Surgical History (Updated 09/19/19 @ 05:57 by Asya Begum DO) History of appendectomy At age 12 History of mitral valve replacement Hx of CABG 2013 with mitral valve repair Stented coronary artery Family History Family History Sibling Diabetes mellitus Acute myocardial infarction Congestive heart failure Hypertension Cerebrovascular accident Prostate carcinoma Sibling Diabetes mellitus Acute myocardial infarction Chronic obstructive pulmonary disease Hypertension Cerebrovascular accident Prostate carcinoma Sibling History of blood clots Diabetes mellitus Hypertension Father Diabetes mellitus Cerebrovascular accident Sibling Diabetes mellitus Social History Social History (Updated 09/19/19 @ 06:08 by Asya Begum DO) Social History: Code status: DNR with state form on chart Smoking packs per day: 2 Smoking cigarettes per day: 40.0 Years smoked: 50 Smoking pack-years: 100.00 Smoking status: Former smoker Tobacco type: cigarettes Alcohol intake: never Substance use: never Substance use type: does not use Living arrangements: fpc Additional living arrangements comments: Patient is a long-term resident of [facility]. Gender identity (if verbalized by the patient): Male Spiritual care concerns: No Agree to blood products: Yes Meds Home Medications and Allergies Home Medications Medication Instructions Recorded Confirmed Type Senna Plus 8.6 tablet PO EVERY OTHER DAY 06/01/19 09/18/19 History acetaminophen [Acetaminophen Extra 500 mg PO TID 06/01/19 09/18/19 History Strength] aspirin 81 mg PO DAILY 06/01/19 09/18/19 History citalopram 20 mg PO BID 06/01/19 09/18/19 History gabapentin 100 mg PO TID 06/01/19 09/18/19 History hydroxyurea 500 mg PO QID 06/01/19 09/18/19 History magnesium 400 mg
[2019-09-19] VITALS (19 sets, daily range): BP systolic 89–146; BP diastolic 46–78; PULSE 88–114; RESP 20–22; TEMP 35.7–36.8; O2SAT 96–99; BMI 27.8
[2019-09-19] MEDS: SODIUM CHLORIDE 0.9% IV 250 ML 30 ML IV CONT (01:12)
[2019-09-19] MEDS: GABAPENTIN 100 MG CAPSULE PO (01:14)
[2019-09-19] MEDS: HYDROXYUREA (*CHEMO) 500 MG CAPSULE PO (01:14)
[2019-09-19] MEDS: CITALOPRAM HYDROBROMIDE 20 MG TABLET PO (01:15)
[2019-09-19] MEDS: PREGABALIN 75 MG CAPSULE PO (01:19)
[2019-09-19 04:04] LABS: Mean Corpuscular HGB Conc 33.9 g/dl (32-36); Mean Corpuscular Hemoglobin 34.7 pg (26-34); Mean Corpuscular Volume 102.3 fl (80-100); Mean Platelet Volume 11.8 fl (7.4-10.4); Platelet Count Result 61 k/mm3 (150-375); Red Blood Count 1.73 M/mm3 (4.6-6.20)
[2019-09-19 04:18] LABS: Alanine Aminotransferase 13 U/L (4-50); Albumin Level 3.1 g/dL (3.5-5.1); Alkaline Phosphatase 56 U/L (38-126); Aspartate Amino Transferase 36 U/L (17-59); Bilirubin,Total 1.2 mg/dL (0.2-1.3); Blood Urea Nitrogen 19 mg/dL (9-20); Calcium 7.4 mg/dL (8.4-10.2); Carbon Dioxide 22 mmol/L (22-30); Chloride 108 mmol/L (98-107); Estimated CRCL calculation 88 ml/min; Estimated Glomerular Filt Rate > 60; Glucose 123 mg/dL (75-110); Phosphorus 2.5 mg/dL (2.5-4.5); Potassium 3.9 mmol/L (3.4-5.0); Sodium 136 mmol/L (137-145); Uric Acid 5.2 mg/dL (3.5-8.5)
[2019-09-19 04:36] LABS: Hematocrit 17.7 % (42.0-52.0); White Blood Count 1.3 K/mm3 (4.5-10.0)
--- NOTE | 2019-09-19 04:49 | ADMGEN ---
This patient, Masoud Luque, was admitted to IMU Room 206-01. Patient/family oriented to hospital policies and general routines including ID bracelet, bed and alarms, visiting hours, pain management, procedures, bathroom and other care routines, personal items, smoking policy, room service/diet, and visiting hours. Valuables list has been completed. Information on how to activate the Rapid Response Team has been discussed. Patient/Family are encouraged to report perceived risks to care and to ask questions if they do not understand what they are told or what they should do.
[2019-09-19 05:12] LABS: Lymphocytes Absolute Manual 0.78 K/mm3 (1.1-4.5); Monocytes Absolute Manual 0.07 K/mm3 (0.1-0.90); Monocytes Percent Manual 6 % (3-9); Neutrophils Percent Manual 34 % (46-73); Total Cells Counted 100
[2019-09-19 05:13] LABS: Hypochromasia 3+ (NORMAL); Platelet Estimate Decreased (Adequate)
[2019-09-19 05:15] LABS: Ovalocytes 1+ (NORMAL)
[2019-09-19 05:16] LABS: Macrocytosis 1+ (NORMAL); Microcytosis 1+ (NORMAL)
[2019-09-19] MEDS: polyethylene glycoL 3350 17 GM POWD.PACK PO (08:07)
[2019-09-19] MEDS: DICLOFENAC SODIUM 1% 100 GM GEL (*BKC) 2 APPLIC TOPICAL ×2 (08:07→16:51)
[2019-09-19] MEDS: LIDOCAINE HCL 2% VISC SOLN 15 ML UDC 5 ML PO (08:10)
[2019-09-19 09:02] LABS: Hematocrit 22.8 % (42.0-52.0); Hemoglobin 7.7 g/dL (14.0-18.0); Mean Corpuscular HGB Conc 33.8 g/dl (32-36); Mean Corpuscular Hemoglobin 33.9 pg (26-34); Mean Corpuscular Volume 100.4 fl (80-100); Mean Platelet Volume 12.4 fl (7.4-10.4); Platelet Count Result 60 k/mm3 (150-375); Red Blood Count 2.27 M/mm3 (4.6-6.20)
[2019-09-19 09:07] LABS: White Blood Count 1.6 K/mm3 (4.5-10.0)
[2019-09-19] MEDS: MICONAZOLE NITRATE 2% CREAM 30 GM TUBE 1 APPLIC TOPICAL ×2 (10:37→16:51)
--- NOTE | 2019-09-19 10:39 | PC.NURSE ---
Attempted to give patient scheduled oral medications in AM. Pt. having oral pain from mouth sores. Patient attempted to swallow small amounts of water and reported discomfort swallowing water. Lidocaine given to pt. and reattempted to give oral medications. Pt still refusing oral medications due to discomfort and difficulty swallowing. Offered pain medication pt does not want to swallow oral medication at this time. Tae NAVARRETE with hospitalist group informed. Will continue to monitor and assess opportunities for oral medication administration.
--- NOTE | 2019-09-19 12:32 | PM.IMPN ---
Progress Note: A&P Assessment and Plan (1) Leukemia: Code(s): C95.90 - Leukemia, unspecified not having achieved remission Status: Acute Assessment and Plan: With marked anemia and pancytopenia. The patient has received 4 units of packed red blood cells at the time of my evaluation; Hgb 7.7 after last unit. Platelet count remains relatively stable. ANC is 442 The patient usually receives his cancer care in [place]. The ER physician contacted the patient's family member who stated that they were okay with the patient staying here and subsequently Dr. Hopper was consulted. Dr. Hopper recommendations appreciated Monitor with CBC this afternoon and tomorrow Await further recommendations from Dr. Hopper (2) Pancytopenia: Code(s): D61.818 - Other pancytopenia Status: Acute Assessment and Plan: See above plan (3) Acute encephalopathy: Code(s): G93.40 - Encephalopathy, unspecified Status: Resolved Assessment and Plan: It is unclear how much of the patient's communication barriers due to encephalopathy from acute infection versus psychiatric illness for his affects of CVA/memory loss or combination of above. Patient also appears to refuse to answer some questions Monitor closely Continue antibiotics for possible infection (4) Neutropenia with fever: Code(s): D70.9 - Neutropenia, unspecified; R50.81 - Fever presenting with conditions classified elsewhere Status: Acute Assessment and Plan: Given that the patient is neutropenic with an ANC of 442 the patient was given a dose of Zosyn and vancomycin in the ER. Possibly has pneumonia as well given CXR and PE. Will continue antibiotic therapy until preliminary blood cultures and urine cultures are returned. Will do Scopolamine patch for secretions as patient is refusing NT suctioning Will place on NPO diet for now Magic mouthwash for oral pain from herpatic stomatitis Monitor closely Subjective Date/time seen: 09/19/19 12:32 Interval history: Patient is a 64 yo M with a past medical history of multiple CVAs with chronic neurologic deficits the right side, chronic leukemia, and depression who is here for pancytopenia with profound anemia and neutropenia with reproted fever at . Patient is in significant distress when visited this afternoon, gurgling secretions and having course breaths and tachypnea. He appears uncomfortable and can indicate that he has significant mouth pain due to herpetic stomatitis. He is requesting to turn on his other side due to being uncomfortable. He does not answer to most questions, seemingly to refuse to answer some questions, but does deny chest pain, palpitations, or fevers. He reports abdominal pain that has been present a couple of months . He states his breathing has been difficult the past couple of nights . Review of Systems Review of Systems: ROS unobtainable: Yes unobtainable due to medical condition (refuses to answer most questions) Exam Narrative: Exam Narrative: Patient is initially lying on left side with head raises, uncomfortable; Nursing and supervising physician in room at time of visit; patient rolled onto right side. Legs contracted. Patient picking at mouth occasionally Const: General: well developed, alert, awake, in distress moderate and respiratory, confusion, tired appearing and uncomfortable Nutritional Appearance: obese Orientation/consciousness: oriented to person HENMT: Head: normocephalic and atraumatic General nose exam: Normal nares present Mouth: Yes moist mucous membranes, Yes lip abnormal (multiple crusted/scabbed lesion, primarily on lower lip), Yes muffled voice and Yes tongue abnormal (clear lesions noted on anterior tongue.) other (peeling membranes noted either from tongue or lips/cheeks)
--- NOTE | 2019-09-19 12:36 | PC.NURSE ---
Dr. Mosley and Tae Ling PA at bedside. Pt having trouble managing secretions at this time and respirations appear more labored. Attempted to oral or deep suction patient. Patient allowed oral suctioning of some thick secretions. Condition discussed with providers, will order scop patch, make pt. NPO, Tae Ling given sister/POA phone number to call and give update to family. Dr. Salazar with oncology here to see pt. as well, will call sister for condition update and to form plan of care with family since pt. can not participate in plan of care at this time
[2019-09-19] MEDS: SCOPOLAMINE 1.5 MG PATCH TRANSDERM (13:52)
[2019-09-19 15:35] LABS: Hematocrit 23.6 % (42.0-52.0); Hemoglobin 7.9 g/dL (14.0-18.0); Immature Platelet Fraction Pct 6.5 % (0.9-11.2); Mean Corpuscular HGB Conc 33.5 g/dl (32-36); Mean Corpuscular Hemoglobin 33.5 pg (26-34); Platelet Count Result 50 k/mm3 (150-375); Red Blood Count 2.36 M/mm3 (4.6-6.20)
[2019-09-19 15:57] LABS: White Blood Count 1.2 K/mm3 (4.5-10.0)
[2019-09-19 16:05] LABS: Band Neutrophils Percent 6 % (0-6); Lymphocytes Absolute Manual 0.48 K/mm3 (1.1-4.5); Neutrophils Absolute Manual 0.72 K/mm3 (1.3-6.7); Neutrophils Percent Manual 54 % (46-73); Nucleated Red Blood Cells 2 %; Platelet Estimate Decreased (Adequate); Total Cells Counted 50
[2019-09-19 16:06] LABS: Anisocytosis 3+ (NORMAL); Hypochromasia 1+ (NORMAL)
[2019-09-19] MEDS: MORPHINE SULFATE 2 MG/ML INJ IV PUSH ×2 (17:00→22:31)
[2019-09-19] MEDS: MAGNES & ALUM HYD/SIMETH/DIPHENHYD/LIDOCAINE 119 ML MOUTHWASH BY MOUTH (19:55)
[2019-09-19 20:12] LABS: Glucose Point of Care 140 (65-105)
--- NOTE | 2019-09-19 21:47 | PC.NURSE ---
Michelle Farfan notified of non-administration of hydrea chemo drug and lyrica tablet due to NPO status and inability to swallow at this time.
--- NOTE | 2019-09-19 23:06 | CONS_ITS ---
DATE OF CONSULTATION: 09/19/2019 REASON FOR CONSULTATION: Pancytopenia. HISTORY OF PRESENTING ILLNESS: This is a 64-year-old male, who is a poor historian, has a history of multiple stroke, and the last stroke was in June 2019, and has been an [facility] resident for the last 2 years' duration. He is wheelchair-bound. History was obtained with discussion with the sister, who has a power of admitted attorneys. According to the patient's sister, the patient was diagnosed with essential thrombocythemia 7 years ago, and was seen by Dr. Monterroso in [place], [place]. He has been recently seen by Dr. Monterroso's partner, Dr. Segal in [facility] in June 2019. The patient has been taking hydroxyurea 500 mg 3 times a day. He now came into the hospital with extreme generalized weakness, especially in the lower extremities. He was eating and drinking poorly. He also was treated for herpetic stomatitis recently. He also had a fever of 101 degrees at the [facility]. He was reporting generalized abdominal pain according to the nursing staff. On the ER arrival, his hemoglobin was 2.7. He received 4 units of packed red blood cells so far. REVIEW OF SYSTEMS: As per HPI, otherwise negative. PAST MEDICAL HISTORY: Essential thrombocythemia, COPD, CVA, type 2 diabetes, hypertension, GERD, myocardial infarction, history of recurrent strokes, carotid stenosis, and bilateral cataracts. PAST SURGICAL HISTORY: Appendectomy, mitral valve replacement, and coronary artery disease, status post stent placement. FAMILY HISTORY: Sister has breast cancer. One brother has leukemia. SOCIAL HISTORY: The patient is an [facility] resident. Quit smoking after smoking 50 years' duration. HOME MEDICATIONS: Reviewed. ALLERGIES: REVIEWED. PHYSICAL EXAMINATION: GENERAL: This patient is a quite tired-looking male, not able to talk much, has visible mucositis and dryness of the mouth. LUNGS: Clear to auscultation bilaterally. CARDIOVASCULAR: Regular rate and rhythm. No murmurs. ABDOMEN: Soft, nontender, and nondistended. Bowel sounds are positive. No hepatosplenomegaly. EXTREMITIES: Mild lower extremity edema. NEURO EXAM: Grossly intact. LABORATORY DATA: WBC 1.2, hemoglobin 7.9, MCV 100, platelets 50,000, neutrophils 54%, lymphocytes 40%. Creatinine 0.8, iron 120, iron saturation 48%, ferritin 846, total bilirubin 1.2, LDH 814. Vitamin B12 more than 1,000. ASSESSMENT AND PLAN: History of essential thrombocythemia. The patient has been on hydroxyurea 500 mg t.i.d. The patient now has developed significant pancytopenia. He came into the hospital with generalized weakness, generalized abdominal pain, and fever along with extreme tiredness and fatigue. He was last seen by Dr. Segal in June 2019 in the [facility]. Likely, his pancytopenia is secondary to hydroxyurea. Other possibilities include development of acute leukemia. I have discussed my recommendation with the sister on the phone. I will order bone marrow aspiration and biopsy. ANC remains quite low. I will start him on Neupogen after the bone marrow aspiration and biopsy. In the meantime, we would recommend covering him for broad-spectrum antibiotics and using mouthwash. The patient does not need platelet transfusion. Hemoglobin also has improved enough where he would not need blood transfusion at this time. We will continue to follow with you and make recommendations. Bone marrow biopsy and aspiration have been ordered. CYNDY KIRBY M.D. REED DIPPER REED DIPPER D I MT: Saravanan
[2019-09-19 23:44] LABS: Glucose Point of Care 125 (65-105)
[2019-09-20] VITALS (15 sets, daily range): BP systolic 91–99; BP diastolic 55–65; PULSE 100–107; RESP 20–100; TEMP 36.1–39.5; O2SAT 70–100
[2019-09-20] MEDS: MAGNES & ALUM HYD/SIMETH/DIPHENHYD/LIDOCAINE 119 ML MOUTHWASH BY MOUTH ×3 (00:42→10:21)
[2019-09-20 03:34] LABS: Hemoglobin 7.8 g/dL (14.0-18.0); Immature Granulocyte Absolute 0.04 K/mm3 (0.00-0.031); Immature Granulocyte Percent A 1.8 % (0-0.5); Immature Platelet Fraction Pct 10.1 % (0.9-11.2); Lymphocytes Absolute Auto 1.07 K/mm3 (0.9-3.2); Lymphocytes Percent Auto 47.3 % (18.3-44.2); Mean Corpuscular HGB Conc 31.2 g/dl (32-36); Mean Corpuscular Hemoglobin 34.1 pg (26-34); Mean Corpuscular Volume 109.2 fl (80-100); Mean Platelet Volume 12.9 fl (7.4-10.4); Monocytes Absolute Auto 0.3 K/mm3 (0.1-0.6); Monocytes Percent Auto 11.5 % (2.6-8.5); Neutrophils Absolute Auto 0.9 K/mm3 (1.3-6.7); Neutrophils Percent Auto 39.4 % (45.5-73.1); Nucleated Red Blood Cells Absolute Auto 0.1 K/mm3 (0.0-0.012); Nucleated Red Blood Cells Perc 2.7 % (0.0-0.2); Platelet Count Result 40 k/mm3 (150-375); Red Blood Count 2.29 M/mm3 (4.6-6.20); White Blood Count 2.3 K/mm3 (4.5-10.0)
[2019-09-20] MEDS: ALBUTEROL SULFATE NEB 2.5 MG/0.5 ML INH 5 MG INHALATION ×2 (03:44→08:26)
--- NOTE | 2019-09-20 03:53 | PC.NURSE ---
At 0300 SpO2 was found to be 70%. Patient placed on 100%(15L) NRB. NT suctioned sm brown thick secretions. SpO2 improved to 100%. Patient mental status noted to gradually deteriorate throughout the night. Dr. aGrcia notified. Orders received.
[2019-09-20 04:09] LABS: Macrocytosis 1+ (NORMAL); Platelet Estimate Decreased (Adequate)
[2019-09-20 04:11] LABS: Anisocytosis 2+ (NORMAL)
[2019-09-20 04:12] LABS: Hypochromasia 1+ (NORMAL)
[2019-09-20 04:23] LABS: Blood Urea Nitrogen 27 mg/dL (9-20); Calcium 7.5 mg/dL (8.4-10.2); Carbon Dioxide 17 mmol/L (22-30); Chloride 109 mmol/L (98-107); Estimated CRCL calculation 56 ml/min; Estimated Glomerular Filt Rate 55; Glucose 142 mg/dL (75-110); Magnesium 2.5 mg/dL (1.6-2.3); Potassium 4.8 mmol/L (3.4-5.0); Sodium 137 mmol/L (137-145)
--- NOTE | 2019-09-20 07:00 | PC.NURSE ---
Aleshia, patient's emergency contact, notified of change in patient condition.
--- NOTE | 2019-09-20 08:24 | P.CDI_ITS ---
CDI Query Clarification Request -Acute encephalopathy has been documented Please further specify type of encephalopathy: * Metabolic * Toxic * Hypertensive * Hepatic * Other * Unable to determine
--- NOTE | 2019-09-20 08:24 | WPDCDIQUERY2 ---
CDI Query Clarification Request -Acute encephalopathy has been documented Please further specify type of encephalopathy: Metabolic Toxic Hypertensive Hepatic Other Unable to determine
--- NOTE | 2019-09-20 08:29 | PM.IMPN ---
Progress Note: A&P Assessment and Plan (1) Leukemia: Code(s): C95.90 - Leukemia, unspecified not having achieved remission Status: Acute Assessment and Plan: With marked anemia and pancytopenia. The patient has received 4 units of packed red blood cells during stay; Hgb at 7.8 this morning; stable. WBC at 2.3, stable and improved. Platelets 40; downtrending. ANC is 442. Dr. Hopper consulted and appreciate input. As above, patient unfortunately declined in his respiratory status and is more lethargic/obtunded. This was discussed with POA/sister, Aleshia, and was agreeable to comfort care/hospice. Comfort measures placed; will continue morphine IV, scopolamine patch, and place on NC. Adjust meds as appropriate Hospice consult placed COVID testing obtained in case patient to return NF. His respiratory issues appear to be due to aspiration and he has been afebrile during stay, but will place on droplet isolation as a precaution Dr. Hopper recommendations appreciated (2) Pancytopenia: Code(s): D61.818 - Other pancytopenia Status: Acute Assessment and Plan: See above plan (3) Acute encephalopathy: Code(s): G93.40 - Encephalopathy, unspecified Status: Resolved Assessment and Plan: See above plan (4) Neutropenia with fever: Code(s): D70.9 - Neutropenia, unspecified; R50.81 - Fever presenting with conditions classified elsewhere Status: Acute Assessment and Plan: See above plan Subjective Date/time seen: 09/20/19 08:29 Interval history: Patient is a 64 yo M with a past medical history of multiple CVAs with chronic neurologic deficits the right side, chronic leukemia, and depression who is here for pancytopenia with profound anemia and neutropenia with reported fever at [facility]. Per zig zag spring machine operator and nursing, patient had a difficult night last night and was placed on non-rebreather mask for supplementation. Patient is more lethargic today opening eyes to physical and verbal stimuli, but falling quickly back asleep. Does not respond to any of my questions. Aleshia, his sister/POA, was contacted this morning and we had a lengthy discussion of patient's decline overnight and that prognosis is poor at this point. We discussed comfort care/hospice and RADHA was understanding and agreeable to this. Review of Systems Review of Systems: ROS unobtainable: Yes unobtainable due to mental status Neurologic: Reports confusion Psychiatric: Psychiatric: Reports confusion Exam Narrative: Exam Narrative: Patient lying supine in bed at time of visit; as above, patient lethargic/obtunded, opening eyes to physical/verbal stimuli, but falling back to sleep. Unable to answer my questions. Exam limited Const: General: comfortable, well developed, in distress moderate and respiratory, confusion and tired appearing Nutritional Appearance: obese Orientation/consciousness: confusion, patient obtunded and lethargic Limitations: altered mental status HENMT: Head: normocephalic and atraumatic General nose exam: Normal nares present (Non-rebreather mask) Face and sinus: face symmetric Mouth: Yes lip abnormal (multiple crusted/scabbed lesion, primarily on lower lip) Eyes: General: appearance normal, both eyes and all related structures EOM: EOMs intact bilaterally Neck: Neck: trachea midline and supple Resp: Effort & Inspection: abnormal respiratory effort (Increased work with breathing) and tachypneic Auscultation: rhonchi (diffuse course breath sounds) throughout Other: on non-rebreather Cardio: Rate: regular rate Rhythm: regular rhythm GI: Inspection: non-distended and obesity GI Palp: No abdominal tenderness and Yes Soft to palpation Auscultation: Hypoactive bowel sounds present Skin: General skin exam: No normal color (pall
--- NOTE | 2019-09-20 09:05 | PCDIET ---
Nutrition Follow-Up Complete: Nutrition Diagnosis: Inadequate oral intake related to multiple medical issues as evidenced by NPO status. Nutrition Goal: Patient to meet estimated nutritional needs. Goal not met. Patient is NPO and more lethargic today. Comfort measures in place. No recommendations at this time; however, if plan of care changes and aggressive nutritional therapy is desired, consult RD for nutrition support recommendations. Last recorded weight is 89.3 kg which is decreased. Bowel Motility: Last documented BM on 09/19/19. Labs Reviewed: WBC (2.3), Hgb (7.8), Hct (25.0), Glu (142) Meds Noted (for comfort) Additional Notes: Ulcer to scrotum and scab to right ankle. Will continue to monitor for plan of care. Nutrition Monitoring and Evaluation: Follow up in 5 days.
[2019-09-20] MEDS: MORPHINE SULFATE 2 MG/ML INJ IV PUSH (09:35)
[2019-09-20] MEDS: LORAZEPAM INJ 2 MG/ML VIAL 1 MG IV PUSH (10:20)
[2019-09-20] MEDS: ACETAMINOPHEN 650 MG SUPPOSITORY RECTAL (10:21)
--- NOTE | 2019-09-20 11:04 | PC.NURSE ---
This patient, Masoud Luque, was transferred to [room 331 [facility] [place] on 09/20/19 at 1035. Personal belongings sent with patient. Belongings list checked and signed with receiving [ ]. Report given to [Vijay ]. Appropriate documentation sent with patient.
--- NOTE | 2019-09-20 11:48 | PM.DS ---
DS: Admitting Diagnosis Admitting Diagnosis Admitting Diagnosis: Other pancytopenia DS: Discharge Diagnosis Discharge Diagnosis (1) Leukemia: Code(s): C95.90 - Leukemia, unspecified not having achieved remission Status: Acute Assessment and Plan: With marked anemia and pancytopenia. The patient has received 4 units of packed red blood cells during stay; Hgb at 7.8 this morning; stable. WBC at 2.3, stable and improved. Platelets 40; downtrending. ANC is 442. Dr. Hopper consulted and appreciate input. As above, patient unfortunately declined in his respiratory status and is more lethargic/obtunded. This was discussed with POA/sister, Aleshia, and was agreeable to comfort care/hospice. Comfort measures placed; will continue morphine IV, scopolamine patch, and place on NC. Adjust meds as appropriate Hospice consult placed; patient to go inpatient Hospice under [facility] COVID testing obtained in case patient to return NF. His respiratory issues appear to be due to aspiration and he has been afebrile during stay, but will place on droplet isolation as a precaution Dr. Hopper recommendations appreciated (2) Pancytopenia: Code(s): D61.818 - Other pancytopenia Status: Acute Assessment and Plan: See above plan (3) Acute encephalopathy: Code(s): G93.40 - Encephalopathy, unspecified Status: Resolved Assessment and Plan: See above plan (4) Neutropenia with fever: Code(s): D70.9 - Neutropenia, unspecified; R50.81 - Fever presenting with conditions classified elsewhere Status: Acute Assessment and Plan: See above plan DS: Summary Hospital Course Reason for hospitalization: Pancytopenia, neutropenia with fever Hospital Course: Patient is a 64 yo M with a past medical history of 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 While in the ER, patient was found to be pancytopenic with profound anemia with Hgb 2.7 on arrival. PAtient had a reported fever at his NH prior to arrival. Patient was admitted under this setting. Please see H&P for further details. Presenting VS: Temp Pulse Resp BP 98.8 F 92 16 91/33 L 09/18/19 16:41 09/18/19 16:41 09/18/19 16:41 09/18/19 16:41 Presenting Pertinent labs: WBC 1.7k, H&H 2.7/8.6, plt 68. CBC, chemsitry, UA, otherwise unremarkable. COVID testing obtained prior to discharge for both respiratory symptoms/fever and for possible placement if need be; this was negative Micro: UCx negative. BCx negative to datex2 Imaging: Chest X-Ray 09/18/19 20:10 IMPRESSION: 1. Low lung volumes which likely account for the appearance of interstitial and airspace opacities. Abdomen X-Ray 09/19/19 17:11 IMPRESSION: 1. Nonspecific and nonobstructive bowel gas pattern. Chest X-Ray 09/20/19 07:02 IMPRESSION: 1. Unchanged diffuse bilateral interstitial and airspace opacities which could represent pulmonary edema, pneumonia, atelectasis or some combination thereof. ECG: Interpretive Statements SINUS RHYTHM LOW QRS VOLTAGE- DIFFUSE LEADS INTRAVENTRICULAR CONDUCTION DELAY BORDERLINE T WAVE ABNORMALITY- HIGH LATERAL LEADS BORDERLINE ECG Patient was admitted to the hospitalist service for further evaluation for pancytopenia with profound anemia; Dr. Hopper (Hemetology/Oncology) was consulted for further input. Patient was transfused a total of 4 u pRBCs during stay which increased Hgb to 7.8 at discharge; stable. Unfortunately, given seemingly complications with swallowing due to herpetic stomatitis, it was felt that patient possibly aspirated, significantly deteriorating his respiratory status. On night, prior to discharge, patient's condition worsened despite IV antibiotics and
[2019-09-20 17:00] LABS: SARS-CoV-2 RNA PCR Negative
== END 2019-09-20 11:05 | disposition hospice, inpatient (51) | DRG 808 ==
LOC: ANHED 19:58 → ANHIMU 21:23 → ANH3MEDSUR 09-24 15:13 → ANHIMU 09-24 15:13
PROVIDERS: Physician Assistant; Admitting Provider Internal Medicine; Emergency Provider Emergency Medicine; PCP Internal Medicine; Visit Provider Family Medicine
DX: D61.818 Other pancytopenia (principal); G93.41 Metabolic encephalopathy; C95.10 Chronic leukemia of unspecified cell type not having achieved remission; I69.351 Hemiplegia and hemiparesis following cerebral infarction affecting right dominant side; R50.81 Fever presenting with conditions classified elsewhere; Z66 Do not resuscitate; F32.9 Major depressive disorder, single episode, unspecified; J44.9 Chronic obstructive pulmonary disease, unspecified; E11.9 Type 2 diabetes mellitus without complications; I10 Essential (primary) hypertension; K21.9 Gastro-esophageal reflux disease without esophagitis; I25.2 Old myocardial infarction; Z95.4 Presence of other heart-valve replacement; Z95.5 Presence of coronary angioplasty implant and graft; I25.10 Atherosclerotic heart disease of native coronary artery without angina pectoris; Z87.891 Personal history of nicotine dependence; Z95.1 Presence of aortocoronary bypass graft; Z11.59 Encounter for screening for other viral diseases
CPT/HCPCS: 36415; 36430; 51701; 71045; 74019; 80048; 80053; 81001; 82607; 82728; 82746; 83540; 83550; 83605; 83615; 83735; 84100; 84443; 84466; 84550; 85025; 85027; 85055; 86850; 86900; 86901; 86923; 87040; 87086; 87635; 93005; 94640; 96361; 96365; 99285; A9270; C9803; J2060; J2270; J2543; J3370; J7030; J7050; P9016; U0003

== ENCOUNTER 2019-09-20 11:06 | HOS | payer OTHER, MEDICARE, MEDICAID, SELFPAY ==
[2019-09-20 11:54] VITALS: BP 105/54; PULSE 106; RESP 28; TEMP 38.7; O2SAT 60
[2019-09-20 11:55] VITALS: O2SAT 94
--- NOTE | 2019-09-20 16:17 | PM.IMHP ---
H&P: HPI History of Present Illness Chief complaint: Leukemia Narrative: Masoud Luque is a 64 year old male with leukemia (treated in [place], [place]) was admitted 09/19 to acute care for herpetic stomatitis, fever, anorexia. He had not been eating or drinking for several days and his herpeitc stomatitis was not improving with Valtrex and or Xylocaine. Despite initiation of Vancomycin and Zosyn IV, he continued to deteriorate. His family opted for hospice care earlier today. Review of Systems Review of Systems: ROS unobtainable: Yes unobtainable due to medical condition [facility] Past Medical History Medical History (Updated 09/20/19 @ 16:29 by Dionicio Kelley MD) Bilateral cataracts Maturing Carotid stenosis COPD (chronic obstructive pulmonary disease) CVA (cerebral vascular accident) Diabetes mellitus Diagnosed 2017 Essential hypertension GERD (gastroesophageal reflux disease) Leukemia, chronic Diagnosed 2014 Myocardial infarct Surgical History Surgical History (Updated 09/19/19 @ 06:15 by Aysa Begum DO) History of appendectomy At age 12 History of mitral valve replacement Hx of CABG 2013 with mitral valve repair, his bypass with complicated by a pericardial effusion and the patient subsequently had to have a stent placed in his bypass graft. Stented coronary artery Social History Social History (Updated 09/20/19 @ 16:28 by Dionicio Kelley MD) Smoking packs per day: 2 Smoking cigarettes per day: 40.0 Years smoked: 50 Smoking pack-years: 100.00 Smoking status: Former smoker Tobacco type: cigarettes Alcohol intake: former Alcohol use details: former heavy drinker, quit 2013 Substance use: never Living arrangements: longterm Additional living arrangements comments: Patient is a long-term resident of [facility]. Occupation/Education: retired Gender identity (if verbalized by the patient): Male Spiritual care concerns: No Agree to blood products: Yes Meds Home Medications and Allergies Home Medications Medication Instructions Recorded Confirmed Type Senna Plus 8.6 tablet PO EVERY OTHER DAY 06/01/19 09/20/19 History acetaminophen [Acetaminophen Extra 500 mg PO TID 06/01/19 09/20/19 History Strength] aspirin 81 mg PO DAILY 06/01/19 09/20/19 History citalopram 20 mg PO BID 06/01/19 09/20/19 History gabapentin 100 mg PO TID 06/01/19 09/20/19 History hydroxyurea 500 mg PO QID 06/01/19 09/20/19 History magnesium oxide 400 mg PO DAILY #0 06/01/19 09/20/19 History nitroglycerin 0.4 mg SUBLINGUAL PRN PRN 06/01/19 09/20/19 History polyethylene glycol 3350 17 g PO DAILY 06/01/19 09/20/19 History tramadol 500 mg PO QID 06/01/19 09/20/19 History atorvastatin 10 mg PO HS #30 tablet 06/02/19 09/20/19 Rx diclofenac sodium 2 g TOPICAL BID 09/18/19 09/20/19 History lidocaine HCl [Lidocaine Viscous] 5 ml PO BID PRN 09/18/19 09/20/19 History mupirocin 1 applic TOPICAL BID 09/18/19 09/20/19 History nystatin 1 applic TOPICAL BID 09/18/19 09/20/19 History pregabalin 75 mg PO HS 09/18/19 09/20/19 History sulfamethoxazole-trimethoprim 1 tablet PO Q12H 09/20/19 09/20/19 History [Bactrim DS] valacyclovir [Valtrex] 1,000 mg PO Q8H 09/20/19 09/20/19 History Allergies Allergy/AdvReac Type Severity Reaction Status Date / Time diazepam Allergy Intermediate Unknown Verified 09/18/19 16:50 midazolam Allergy Intermediate Unknown Verified 09/18/19 16:50 warfarin Allergy Intermediate Unknown Verified 09/18/19 16:50 clopidogrel Allergy Unknown Unknown Verified 09/18/19 16:50 Vital Signs Vital Signs - 24 hr 09/20/19 11:54 09/20/19 11:55 Temperature 101.7 F H Pulse Rate 106 H Respiratory Rate 28 H Blood Pressure 105/54 L Pulse Oximetry 60 L 94 Exam Narrative: Exam Narrative: GENERAL: Chronically ill gentleman who appears significantly older than his recorded age HEENT: Sclerae nonicteric. Pupils small, equal, sluggish. Oral mucosa with multiple shallow
[2019-09-20] MEDS: LORAZEPAM INJ 2 MG/ML VIAL 1 MG IV PUSH (17:05)
[2019-09-20 17:10] VITALS: TEMP 39.1
[2019-09-20] MEDS: ACETAMINOPHEN 650 MG SUPPOSITORY RECTAL (17:10)
[2019-09-20 18:10] VITALS: TEMP 38.6
[2019-09-20] MEDS: LIDOCAINE HCL 2% JELLY 30 ML TUBE 1 APPLIC MUCOUS MEM (20:46)
[2019-09-20 21:22] VITALS: BP 70/44; PULSE 98; RESP 20; TEMP 36.4; O2SAT 94
--- NOTE | 2019-09-20 23:36 | PC.NURSE ---
Patient noted not breathing and does not have a pulse. Verified by a second nurse Igor Cook RN. Nursing supervisor pipe manufacture notified.
--- NOTE | 2019-09-20 23:50 | PC.NURSE ---
Hospice nurse paged.
--- NOTE | 2019-09-21 00:06 | PC.NURSE ---
Aleshia,sister/POAH, notified that patient has . States that she does not want to come to the hospital. home verified.
--- NOTE | 2019-09-21 00:14 | PC.NURSE ---
notified that patient has .
--- NOTE | 2019-09-21 00:22 | PC.NURSE ---
Halley, hospice nurse, notified that patient has .
--- NOTE | 2019-09-27 13:47 | PM.DDS ---
Discharge Sum: Prov Provider Primary care physician: Kaleb Jones Jr., MD Admitting provider: Dionicio Kelley MD Discharge Sum: Diag PCOD Leukemia Contributing Factors (1) Neutropenia with fever: (2) Pancytopenia: (3) Leukemia: (4) Anemia: (5) Acute encephalopathy: (6) Leukemia, chronic: (7) Hypertension: Discharge Sum: Summary Date and Time Date of admission: 09/20/19 11:06 Summary Details: Admitted to inpatient hospice service. Medications were titrated to comfort. peacefully. Additional Data Attending physician: Dionicio Kelley MD
== END 2019-09-20 23:36 | disposition expired | DRG 809 ==
PROVIDERS: Admitting Provider Internal Medicine; PCP Internal Medicine; Visit Provider Internal Medicine
DX: D61.818 Other pancytopenia (principal); C95.10 Chronic leukemia of unspecified cell type not having achieved remission; G93.40 Encephalopathy, unspecified; B00.2 Herpesviral gingivostomatitis and pharyngotonsillitis; Z51.5 Encounter for palliative care; R50.81 Fever presenting with conditions classified elsewhere; Z66 Do not resuscitate
CPT/HCPCS: A9270; J2060; J2270